=== PATIENT | female | born 1990 | race Caucasian/White ===

== ENCOUNTER 2019-02-28 17:52 | Emergency (ER) | payer SELFPAY ==
[~2019-02-28] VITALS: Ht 165.1 cm; Wt 95.3 kg
[2019-02-28 17:57] VITALS: Ht 165.1 cm; Wt 95.3 kg
[2019-02-28 19:02] LABS: microscopic required? YES; urine erythrocyte 1+ (NEGATIVE)
[2019-02-28 19:05] LABS: BASOPHIL % 1.1 % (0-2); PLATELET COUNT 321 x10^3mcL (130-400); RED CELL DISTRIBUTION WIDTH 13.7 % (11.5-14.5)
[2019-02-28 19:16] LABS: CALCIUM 9.2 mg/dL (8.5-10.1); CARBON DIOXIDE 29.8 mmol/L (21-32); CHLORIDE SERUM 102 mmol/L (98-107); CREATININE SERUM 0.9 mg/dL (0.6-1.0); GFR1 > 60 mL/min; GLUCOSE SERUM 86 mg/dL (74-106); POTASSIUM SERUM 3.5 mmol/L (3.5-5.1); SODIUM SERUM 140 mmol/L (136-145)
[2019-02-28 19:18] LABS: AMPHETAMINE QUAL UR NONE DETECTED (See below)
[2019-02-28 19:21] LABS: ALBUMIN 3.7 g/dL (3.4-5.0); ALKALINE PHOSPHATASE 93 U/L (46-116); ALT/SGPT 32 U/L (14-59); AST/SGOT 16 U/L (15-37); BILIRUBIN TOTAL 0.25 mg/dL (0.20-1.00); CHOLESTEROL 157 mg/dL (<200); CHOLESTEROL/HDL RATIO 3.4; HDL CHOLESTEROL 46 mg/dL (40-60); LIPASE 173 IU/L (73-393); TOTAL PROTEIN, SERUM 8.2 g/dL (6.4-8.2); TRIGLYCERIDES 145 mg/dL (<150)
[2019-02-28 19:25] LABS: T3 TOTAL 1.27 ng/mL
[2019-02-28 19:31] LABS: FREE T4 1.05 ng/dL (0.76-1.46); FREE THYROXINE INDEX 3.6 ug/dL (1.4-4.5); T4(THYROXINE) 11.2 ug/dL (4.7-13.3)
[2019-02-28 19:56] VITALS: BP 106/59
== END 2019-02-28 19:56 | disposition home or self-care (01) ==
LOC: ED 17:52
PROVIDERS: Specialist
DX: R00.2 Palpitations (principal); R07.89 Other chest pain; Z98.890 Other specified postprocedural states
CPT/HCPCS: 36415; 83880; 84439; Q0092